=== PATIENT | male | born 1985 ===

== ENCOUNTER 2018-04-04 12:55 | Emergency (ER) | payer OTHER ==
[~2018-04-04] VITALS: Ht 175.3 cm; Wt 88.9 kg
[2018-04-04] MEDS ORDERED: OXYCODONE HCL5 M1 PO (13:16)
[2018-04-04] MEDS ORDERED: XANAX XR0.5 MG PO (13:17)
== END 2018-04-04 15:22 | disposition home or self-care (01) ==
LOC: ER 12:55
DX: B37.0 Candidal stomatitis (principal); R10.11 Right upper quadrant pain